=== PATIENT | female | born 1950 | race Caucasian/White ===

== ENCOUNTER → 2024-04-19 11:42 | Outpatient (CLI) | payer MEDICARE, OTHER, SELFPAY ==
--- NOTE | 2024-04-19 11:49 | DI.MRI.S_ITS ---
PROCEDURE: MR LUMBAR SPINE WO CON INDICATIONS: LOW BACK PAIN,HX LUMBAR FUSION,LEG NUMBNESS TECHNIQUE: Noncontrast sagittal T1 spin echo and T2 fast echo, sagittal STIR, and T2 fast spin echo through the lumbar spine. In cases with scoliosis, additional coronal T2 fast spin echo may be performed. COMPARISON: None. FINDINGS: Image quality: There is artifact associated with the metallic hardware. This examination is limited by involuntary motion artifact. Alignment and Curvature: There is minimal retrolisthesis seen at the L1-L2 and L2-L3 levels. Bone Marrow: Marrow is of normal overall signal. No acute vertebral body compression fractures. Spinal Cord: Conus medullaris terminates at the L1 level. Visualized cord demonstrates normal signal and size. Postoperative change is seen, with apparent disc spacers at L3-L4. Bilateral pedicle screws are seen at L4-L5 and at L5-S1. There has been removal of portions of the posterior elements. Paraspinous Soft Tissues: No paravertebral masses. T12-L1: Moderate loss of disc height is seen. Loss of disc signal is seen. There is a superimposed central disc protrusion. Mild facet joint hypertrophy is seen. Moderate bilateral neural foraminal narrowing is seen. Mild to moderate central canal narrowing is seen. L1-L2: Moderate loss of disc height is seen. Loss of disc signal is seen. Moderate disc bulge is seen at this level. There is a central disc osteophyte protrusion. Moderate facet joint hypertrophy is seen. Associated hypertrophy of the ligamentum flavum can be seen. There is at least moderate right-sided and moderate left-sided neural foraminal narrowing. There is a degree of compression seen upon the exiting right L1 nerve root. Mild to moderate central canal narrowing is seen. L2-L3: There is at least moderate loss of disc height and disc signal seen. Reactive marrow endplate changes are seen, which demonstrate mixed T1 weighted and T2-weighted signal, and are attributed to a combination of edema and fatty metaplasia (Modic type I and Modic type II changes). Moderate generalized disc bulge is seen. There is a central disc protrusion seen. There is a focal annular fissure seen posteriorly. Moderate facet joint hypertrophy is seen. There is at least moderate right-sided and moderate to severe left-sided neural foraminal narrowing. There is a degree of compression seen upon the exiting nerve roots. Mild central canal narrowing is seen. L3-L4: Moderate generalized disc bulge is seen. Moderate facet joint hypertrophy is seen. There is at least moderate bilateral neural foraminal narrowing seen. There is a degree of compression seen upon the exiting nerve roots. Mild to moderate central canal narrowing is seen. L4-L5: There is at least moderate loss of disc height seen. A degree of vertebral body fusion is suspected. Mild to moderate disc bulge is seen. There is [id number] left-sided and no right-sided neural foraminal narrowing. No central canal narrowing is seen. L5-S1: The disc height is well-preserved. Loss of disc signal is seen at this level. Mild generalized disc bulge is seen. Moderate facet joint hypertrophy is seen. There is mild left-sided and no right-sided neural foraminal narrowing. Minimal central canal narrowing is seen. IMPRESSION: Lumbar spine postoperative changes are seen. Multiple levels of degenerative change are seen, which are overall worst at the L2-L3 level. Dictated by: Deshawn Landa M.D. on 04/19/2024 at 15:50 Approved by: Deshawn Landa M.D. on 04/19/2024 at 15:54
== END ==
PROVIDERS: Referring Provider Nurse Practitioner Acute Care; Visit Provider Nurse Practitioner Acute Care
DX: M47.816 Spondylosis without myelopathy or radiculopathy, lumbar region (principal); M47.817 Spondylosis without myelopathy or radiculopathy, lumbosacral region; M54.50 Low back pain, unspecified; R20.0 Anesthesia of skin; Z98.1 Arthrodesis status
CPT/HCPCS: 72148